=== PATIENT | male | born 1990 | race Caucasian/White ===

== ENCOUNTER 2016-09-11 03:21 | Inpatient (IN) | payer OTHER ==
--- NOTE | ~2016-09-11 | PN ---
Unit #: [id number] #: [id number] Patient: PRASANNA JOHNSON [id number] [facility] [address] [place] [address] [id number] MR#: [id number] NAME: PRASANNA JOHNSON. ROOM: P210 Age: 26 Sex: M Admission Date: 09/11/2016 : 1990 Attending Physician: Tashi Allan M.D. Admitting Physician: Tashi Allan M.D. Primary Care Physician: Sanjay Jean PROGRESS NOTES DATE 09/13/2016 DISCUSSION Prasanna Johnson is a 26-year-old male, seen on 09/13/2016. The patient interviewed, chart reviewed, and obtained information from the nursing staff. The patient wanted to know about his lab tests which was explained. The patient reports making progress but still sad, depressed, withdrawn, isolative. Vital signs stable, 97.6, 59, and 109/64. REVIEW OF SYSTEMS Complete review of systems unremarkable. MENTAL STATUS EXAMINATION General appearance: Patient dressed casually. Attention span and concentration, fair. Oriented to time, place, and person. Mood and affect, sad and depressed. Speech, monotone. Thought process, concrete. The patient denied any thoughts of harming self or others or any psychotic symptoms. Recent and remote memory, poor. Insight and judgment, poor. DIAGNOSIS Mood disorder, NOS. ASSESSMENT/PLAN Advised to continue with the current medication and therapeutic protocol and if needed consider further adjustment of medication. Dictated by... Sanjya East/eduin TD: 09/16/2016 07:25 JOB #: [id number] Unit #: [id number] #: [id number] Patient: PRASANNA JOHNSON PEAERWIN PROGRESS NOTES Page 1 of 1 X Tashi Allan MD X PROGRESS NOTE
--- NOTE | ~2016-09-11 | DS ---
Unit #: [id number] #: [id number] Patient: ANNA MARIE JOHNSON [id number] [facility] [address] [place] [address] [id number] MR#: [id number] NAME: ANNA MARIE JOHNSON. ROOM: P210 Age: 26 Sex: M Admission Date: 09/11/2016 : 1990 Discharge Date: 09/14/2016 Attending Physician: Tashi Allan M.D. Primary Care Physician: Sumit Gracia M.D. DISCHARGE SUMMARY REASON FOR ADMISSION Depression, alcohol abuse. DIAGNOSTIC STUDIES LABORATORY RESULTS: Unremarkable. HOSPITAL COURSE The patient was admitted to inpatient unit on 09/11/2016 and discharged on 09/14/2016. The patient was treated on the inpatient unit with psychoeducation, chemical dependency group, psychotherapy, structured milieu, medication management. The patient responded well with the above modalities of treatment. Subsequently, the patient was discharged with a plan to follow up in outpatient program. DISCHARGE MEDICATIONS Remeron 15 mg at bedtime for depression, Protonix 40 mg daily for GERD, Vistaril 50 mg t.i.d. for anxiety, Seroquel 100 mg at bedtime for sleep, Augmentin 875 mg b.i.d. for infection. DISCHARGE DIAGNOSES Psychiatric: 1. Mood disorder, not otherwise specified, F32.9. 2. Rule out bipolar mood disorder. 3. Anxiety disorder, not otherwise specified. 4. Alcohol use disorder, severe, F10.20. Secondary diagnosis: Deferred. Medical diagnosis: None. Stressors: Psychosocial stressors. DISCHARGE INSTRUCTIONS The patient to follow up in outpatient clinic as per director of social work. CONDITION ON DISCHARGE The patient was pleasant and cooperative. Denied any psychotic symptom or any suicidal ideation. PROGNOSIS Guarded. DIET AND ACTIVITY As tolerated. Unit #: [id number] #: [id number] Patient: ANNA MARIE JOHNSON Dictated by... Sanjay EastC/robert TD: 09/14/2016 13:34 JOB #: [id number] DISCHARGE SUMMARY Page 1 of 1 X Tashi Allan MD DISCHARGE SUMMARY
--- NOTE | ~2016-09-11 | HP ---
Unit #: [id number] #: [id number] Patient: PRASANNA JOHNSON [id number] [facility] [address] [place] [address] [id number] I MR#: [id number] NAME: PRASANNA JOHNSON. ROOM: P210 Age: 26 Sex: M Admission Date: 09/11/2016 : 1990 Attending Physician: Tashi Allan M.D. Admitting Physician: Tashi Allan M.D. Primary Care Physician: Sumit Gracia M.D. HISTORY AND PHYSICAL HISTORY OF PRESENT ILLNESS Prasanna is a 26 year old admitted to [address] [place] [address] because of his continued drug use. PAST MEDICAL HISTORY 1. Long history of opioid abuse to include heroin. 2. Hepatitis C. PAST SURGICAL HISTORY 1. Bilateral inguinal hernia repair. 2. Hydrocele repair. 3. Right hand. ALLERGIES Erythromycin, Keflex, trazodone, and Cipro. SOCIAL HISTORY Smokes one-half packs per day. Denies alcohol. Admits to long history of opioid abuse to include IV heroin. FAMILY HISTORY Medically noncontributory. REVIEW OF SYSTEMS CONSTITUTIONAL: No fever or chills. HEENT: Denies any sore throat, ear pain or runny nose. CARDIOVASCULAR: Denies chest pain, irregular heart rhythm or palpitations. CHEST: Denies shortness of breath or cough. No hemoptysis. GASTROINTESTINAL: Denies nausea, vomiting, diarrhea or chronic constipation. ENDOCRINE: Denies history of increased thirst or urination. No recent significant weight loss or gain. GENITOURINARY: Denies dysuria, frequency, or hematuria. SKIN: Denies any rashes. HEMATOLOGIC: Denies history of increased bleeding or bruising. MUSCULOSKELETAL: Denies any hot, swollen joints. No generalized muscle pain. NEUROLOGIC: Denies problems with vision or speech. No frequent, severe headaches. No numbness, tingling or weakness in any extremities. Denies loss of bladder or bowel control. CURRENT MEDICATIONS Detox protocol. Unit #: [id number] #: [id number] Patient: PRASANNA JOHNSON PHYSICAL EXAMINATION GENERAL: Alert, well nourished. No apparent distress. VITAL SIGNS: Blood pressure 130/80, heart rate 80, respirations 16, and temperature 98.6. WEIGHT: 137. HEIGHT: 5 feet 8 inches. SKIN: Warm and dry without rash or lesion. It is evident that along the left brow, he has had a recent piercing. The area is slightly red with small amounts of serous fluid. No warmth or odor is noted. HEENT: Normocephalic. TMs not viewed. Oral and nasal passages clear. Conjunctivae clear. PERRLA. EOMs intact. NECK: Supple without lymphadenopathy or thyromegaly. HEART: Regular rate and rhythm without murmur. LUNGS: Clear. ABDOMEN: Soft, nontender. : Not done. EXTREMITIES: No evidence of cyanosis, clubbing or edema. Moves all without focal deficit. NEUROLOGICAL: Grossly within normal limits. Cranial Nerves: II: Visual meehan are intact. III, IV AND : Extraocular movements are intact. Pupils are equal, round and reactive to light. V: Facial sensation is grossly normal. VII: Facial movements and expression are normal. VIII: Auditory acuity grossly intact. IX, X: Uvula is midline. Phonation is normal. XI: Patient shrugs shoulders and turns head normally. XII: Tongue protrudes in the midline. Sensory and Motor Function: Sensory and motor sensation is grossly normal. Motor: moves all extremities well. Coordination: Gait is normal. Deep Tendon Reflexes: Intact. ASSESSMENT 1. Psychiatric admission. 2. Cellulitis along his left brow after a recent piercing. RECOMMENDATIONS PSYCHIATRIC: Per psychiatrist. MEDICAL: 1. I see no contraindication to participate in this facility's activities. 2. Augmenting 875 mg 1 p.o. b.i.d. x7 days. MEDICAL PROGNOSIS Good. MEDICAL CONDITION Stable. Dictated by... Ricyk NunezAKarli. for Sanjay Astorga/darryn Unit #: [id number] #: [id number] Patient: PRASANNA JOHNSON TD: 09/12/2016 06:44 JOB #: [id number] HISTORY AND PHYSICAL Page 1 of 1 X Isabell Andujar HISTORY AND PHYSICAL
--- NOTE | ~2016-09-11 | PN ---
Unit #: [id number] #: [id number] Patient: PRASANNA JOHNSON [id number] [facility] [address] [place] [address] [id number] I MR#: [id number] NAME: PRASANNA JOHNSON. ROOM: P210 Age: 26 Sex: M Admission Date: 09/11/2016 : 1990 Attending Physician: Tashi Allan M.D. Admitting Physician: Tashi Allan M.D. Primary Care Physician: Sanjay Jean PROGRESS NOTES DATE 09/12/2016 DISCUSSION Mr. Prasanna Johnson is a 26-year-old male seen on 09/12/2016. The patient was compliant and cooperative, mood sad, dysphoric. The patient was able to maintain safe behavior but still reported having symptoms of depression, anxiety, mood lability. Complete review of systems unremarkable. MENTAL STATUS EXAMINATION General appearance, the patient dressed casually. Vital signs stable 98.4, 83, 118/72. Attention span and concentration fair. Oriented to place and person. Mood and affect sad, dysphoric. Speech monotone. Thought process concrete. The patient denied any thoughts of harming self or others or any psychotic symptoms. Recent and remote memory poor, seclusive, isolative, guarded. Insight and judgement poor. DIAGNOSES Mood disorder NOS Alcohol use disorder moderate to severe. ASSESSMENT/PLAN Advise to continue with current medication and therapeutic protocol. If needed consider further adjustment of medication. Dictated by... Sanjay East/kalyani TD: 09/16/2016 01:05 JOB #: [id number] Unit #: [id number] #: [id number] Patient: PRASANNA JOHNSONERWIN PROGRESS NOTES Page 1 of 1 X Tashi Allan MD X PROGRESS NOTE
--- NOTE | ~2016-09-11 | PA ---
Unit #: [id number] #: [id number] Patient: PRASANNA JOHNSON [id number] [facility] [address] [place] [address] [id number] I MR#: [id number] NAME: PRASANNA JOHNSON ROOM: [facility] Age: 26 Sex: M Admission Date: 09/11/2016 : 1990 Date of Assessment: 09/11/2016 Attending Physician: Tashi Allan M.D. Admitting Physician: Tashi Allan M.D. Primary Care Physician: Sumit Gracia M.D. PSYCHIATRIC ASSESSMENT INFORMANTS The patient reliability, fair informant and chart reliability, good. CHIEF COMPLAINT Substance abuse and depression. HISTORY OF PRESENT ILLNESS Mr. Prasanna Johnson is a 26-year-old male, seen on , presented with the above-mentioned complaint. The patient presented with depressive symptoms, reported feeling sad and depressed, reported suicidal ideation with a plan to overdose or walk into traffic. The patient denied any homicidal ideation or any hallucination. The patient reported drinking a fifth of vodka a day early June. The patient reports that he uses between quarter to half of heroin every other day. The patient reported that he has started drinking a lot and cut back on the heroin. The patient reported that he has not had anything in the last 36 hours, but marijuana. The patient reports depression and anxiety. The patient reports not eating or sleeping. The patient has a CIWA score of 8 and COWS score of 9. The patient needing inpatient admission at this time for psychiatric stabilization. PAST PSYCHIATRIC HISTORY Remarkable [facility]. FAMILY HISTORY AND SOCIAL HISTORY The patient lives with his mother. History of psychiatric illness in the family unremarkable. History of drug abuse and DUI in the past. The patient denied any history of physical abuse, sexual abuse, or emotional abuse. MEDICAL HISTORY Unremarkable for any chronic medical illness. Musculoskeletal; muscle strength and tone, no atrophy or abnormal movement. Gait normal. MEDICATION HISTORY None. ALLERGIES No known drug allergies. SUBSTANCE ABUSE HISTORY The patient reported tobacco use, age of onset 10; alcohol, age of onset Unit #: [id number] #: [id number] Patient: WHITE,PRASANNA A 12; marijuana, age of onset 7; and opioid use, age of onset 17. The patient reported currently symptoms such as depressed mood, irritability, restlessness, sweats, cold, chills, poor appetite, sleep problem, history of blackout, history of hepatitis, withdrawal symptom, and IV drug use in the past. REVIEW OF SYSTEMS HEENT: Eyes, clear. Ears, nose, mouth, and throat; clear. CARDIOVASCULAR: Unremarkable. RESPIRATORY: Unremarkable. GI: Unremarkable. : Unremarkable. SKIN: Unremarkable. LYMPH NODE: Unremarkable. NEUROLOGIC: Unremarkable. ENDOCRINE: Unremarkable. HEMATOLOGIC: Unremarkable. ALLERGIC/IMMUNOLOGIC: Unremarkable. MUSCULOSKELETAL: Muscle strength and tone, no atrophy or abnormal movement. Gait normal except as mentioned above. MENTAL STATUS EXAMINATION CONSTITUTIONAL: Measurement of vital signs; temperature 97.7, heart rate 66, respiratory rate 18, and blood pressure 131/80. Height 5 feet 8 inches and weight 138 pounds. GENERAL APPEARANCE: The patient dressed casually. The patient did not show any facial deformity. MUSCULOSKELETAL: Please see above. PSYCHIATRIC EXAMINATION Description of speech; regular rate, normal volume, normal articulation, coherent, and spontaneous. Description of thought process, goal directed. Description of association, intact. Description of abnormal psychotic thinking; the patient denied any hallucinations or delusions, but mood sad and depressed. Substance abuse and suicidal ideation. No homicidal ideation. No psychotic symptom. Description of the patient's judgment: Concerning everyday activity, poor. Social situation, poor. Concerning psychiatric condition, poor. Complete mental status examination; oriented in time, place, and person. Recent and remote memory, fair. Attention span and concentration, fair. Language, able to name object and repeat phrases. Fund of knowledge, aware of current event and passive vocabulary intact. Mood and affect, sad and dysphoric. Insight and judgment, fair to poor. ASSETS AND LIABILITIES Assets, the patient is articulate and able to take care of his ADL. Liability, history of substance abuse and depression. ADMITTING DIAGNOSES Psychiatric: Mood disorder, not otherwise specified, F32.9; bipolar mood disorder, not otherwise specified, F31.89; and alcohol use disorder, severe, F10.20. Secondary diagnosis: Deferred. Medical diagnosis: None. Unit #: [id number] #: [id number] Patient: PRASANNA JOHNSON Stressors: Psychosocial stressors. PSYCHIATRIC PLAN AND TREATMENT GOAL AND DISCHARGE PLAN 1. Advised to admit the patient on the inpatient unit. Provide safe, supportive, and structured environment. 2. Ordered labs; CBC, CMP, UA, and UDS. 3. Detox protocol and detox monitoring. The patient to continue with current medication. Monitor the patient's mood and behavior. The patient to attend group therapy, individual therapy, and medication management. Advised Remeron 15 mg for depression and sleep and doxepin 100 mg at bedtime for sleep. The patient to continue with Vistaril and Protonix. TREATMENT GOAL To attain euthymic mood, gain insight into his problem, and learn coping skills. DISCHARGE PLAN Plan to stabilize the patient and consider followup in outpatient program. ESTIMATED LENGTH OF STAY 5 days. Dictated by... Sanjay East/robert TD: 09/11/2016 18:54 JOB #: [id number] PSYCHIATRIC ASSESSMENT Page 1 of 1 X Tashi Allan MD X PSYCHIATRIC ASSESSMENT
[2016-09-11 10:11] LABS: BASOPHIL% 0.4 % (0-2.5); EOSINOPHIL# 0.2 X10e3 (0-0.7); EOSINOPHIL% 2.4 % (0.0-7.0); HEMATOCRIT 43.2 % (38.0-50.0); HEMOGLOBIN 14.5 gm/dL (13.0-16.0); LYMPHOCYTE# 3.4 X10e3 (1.0-3.5); LYMPHOCYTE% 39.5 % (17.0-45.0); MEAN CELL VOLUME 92.1 FL (83-96); MEAN CORPUSCULAR HGB CONC 33.6 g/dL (30-36); MEAN PLATELET VOLUME 8.8 FL (6.5-11.5); MONOCYTE# 0.9 X10e3 (0-1.0); MONOCYTE% 10.5 % (3.0-12.0); NEUTROPHIL# 4.1 X10e3 (1.5-7.1); NEUTROPHIL% 47.2 % (40-75); PLATELET COUNT 174 X10e3 (140-420); RED BLOOD COUNT 4.69 X10e (3.90-5.60); RED CELL DISTRIBUTION WIDTH 12.3 % (11.0-15.5); WHITE BLOOD COUNT 8.7 X10e3 (4.0-10.5)
[2016-09-11 10:14] LABS: DIFF IND NO
[2016-09-11 10:21] LABS: THYROID STIMULATING HORMONE 2.47 uIU/ml (0.34-5.60)
[2016-09-11 10:23] LABS: BILIRUBIN,TOTAL 0.3 mg/dL (0.2-2.0); BUN/CREATININE RATIO 15.55; CALCIUM SERUM 9.4 mg/dL (8.4-10.2); CREATININE SERUM 0.9 mg/dL (0.6-1.4); GLOM FILT RATE Estimated 115.8 mL/min (>60); POTASSIUM 3.8 mmol/L (3.5-5.1); PROTEIN TOTAL SERUM 6.4 g/dL (6.0-8.3)
[2016-09-11 10:28] LABS: FREE THYROXIN (T4) 0.69 ng/dL (0.58-1.64)
[2016-09-11 10:31] LABS: URINE APPEARANCE CLEAR; URINE BILIRUBIN NEG (NEG); URINE BLOOD NEG (NEG); URINE COLOR YELLOW; URINE GLUCOSE NEG (NEG); URINE KETONE NEG (NEG); URINE LEUKOCYTE ESTERASE NEG (NEG); URINE NITRATE NEG (NEG); URINE PH 6.5 (5-8); URINE PROTEIN NEG (NEG); URINE SPECIFIC GRAVITY 1.022 (1.003-1.035)
[2016-09-11 11:06] LABS: AMPHETAMINE NEG (NEG); BARBITURATES NEG (NEG); BENZODIAZEPINES NEG (NEG); COCAINE NEG (NEG); MARIJUANA POS (NEG); OPIATES POS (NEG); TRICYCLIC ANTIDEPRESSANTS NEG (NEG); U METHADONE NEG (NEG)
== END 2016-09-14 10:25 | DRG 885 ==
LOC: P2S 03:21
PROVIDERS: Psychiatry & Neurology Psychiatry
PROC: HZ2ZZZZ Detoxification Services for Substance Abuse Treatment (ICD-10-PCS; principal; 2016-09-11)
DX: F39 Unspecified mood [affective] disorder (principal); L03.211 Cellulitis of face; F10.20 Alcohol dependence, uncomplicated; B19.20 Unspecified viral hepatitis C without hepatic coma; F17.210 Nicotine dependence, cigarettes, uncomplicated
CPT/HCPCS: 80053; 80307; 81003; 84439; 84443; 85025; 86592

== ENCOUNTER 2016-11-03 02:00 | Inpatient (IN) | payer OTHER ==
--- NOTE | ~2016-11-03 | PN ---
Unit #: [id number] #: [id number] Patient: ANNA MARIE JOHNSON [id number] [facility] [address] [place] [address] [id number] I MR#: [id number] NAME: ANNA MARIE JOHNSON. ROOM: [facility] Age: 26 Sex: M Admission Date: 11/03/2016 : 1990 Attending Physician: Tashi Allan M.D. Admitting Physician: Tashi Allan M.D. Primary Care Physician: Sanjay Jean PROGRESS NOTES DATE OF SERVICE 11/04/2016 DISCUSSION Mr. Mims is a 26-year-old male seen on 11/04/2016. The patient interviewed, chart reviewed. Obtained information from nursing staff. The patient compliant, cooperative. Mood sad, dysphoric, flat affect, guarded. The patient still reported feeling depressed, but able to contract for safety. Compliant with medication. Complete Review of Systems: Unremarkable. MENTAL STATUS EXAMINATION General Appearance: The patient dressed casually. Vital Signs: 98.8, 126, 112/73. Attention span, concentration: Fair. Oriented in place and person. Mood and affect: Sad, dysphoric. Speech: Regular rate, coherent, oriented. Thought process: Coherent. Thought content: The patient denied any thoughts of harming self or others, but withdrawn. Sad, depressed. Recent and remote memory: Poor. Insight and judgment: Poor. DIAGNOSES 1. Bipolar mood disorder not otherwise specified. 2. Alcohol use disorder, severe. ASSESSMENT/PLAN Advised to continue with current medication and therapeutic protocol. If needed, consider further adjustment of medication. Dictated by... Sanjay East/darryn TD: 11/05/2016 12:32 JOB #: [id number] Unit #: [id number] #: [id number] Patient: ANNA MARIE JOHNSONERWIN PROGRESS NOTES Page 1 of 1 X Tashi Allan MD PROGRESS NOTE
--- NOTE | ~2016-11-03 | DS ---
Unit #: [id number] #: [id number] Patient: ANNA MARIE JOHNSON [id number] [facility] [address] [place] [address] [id number] I MR#: [id number] NAME: ANNA MARIE JOHNSON. ROOM: [facility] Age: 26 Sex: M Admission Date: 11/03/2016 : 1990 Discharge Date: 11/05/2016 Attending Physician: Tashi Allan M.D. Primary Care Physician: Sumit Gracia M.D. DISCHARGE SUMMARY REASON FOR ADMISSION Suicidal ideation and drug abuse. DIAGNOSTIC STUDIES LABORATORY RESULTS: Remarkable for urine drug screen positive for opioids. HOSPITAL COURSE The patient was admitted to inpatient unit on 11/03/2016 and discharged on 11/05/2016. The patient was treated on the inpatient unit with chemical dependency group, structured milieu, psychoeducation. The patient responded to the treatment and subsequently, the patient was discharged with a plan to follow up in outpatient program. The patient denied any suicidal or homicidal ideation. Denied any psychotic symptom. The patient was not suicidal or homicidal at the time of discharge. DISCHARGE MEDICATION Bactrim DS one tablet b.i.d. for 5 days for upper respiratory tract infection, Seroquel 100 mg at bedtime for sleep, Remeron 15 mg at bedtime for depression, and Vistaril 50 mg t.i.d. for anxiety. DISCHARGE DIAGNOSES Psychiatric: Major depressive disorder, recurrent, severe, F33.2; anxiety disorder, not otherwise specified; alcohol use disorder, severe, F10.20. Secondary diagnosis: Deferred. Medical diagnosis: None. Stressors: Psychosocial stressors. DISCHARGE INSTRUCTIONS The patient to follow up in outpatient clinic as per social economist. CONDITION ON DISCHARGE The patient was pleasant and cooperative. Denied any psychotic symptom or any suicidal ideation. PROGNOSIS Guarded. DIET AND ACTIVITY As tolerated. Unit #: [id number] #: [id number] Patient: ANNA MARIE JOHNSON Dictated by... Sanjay East/robert TD: 11/06/2016 16:34 JOB #: [id number] DISCHARGE SUMMARY Page 1 of 1 X Tashi Allan MD DISCHARGE SUMMARY
--- NOTE | ~2016-11-03 | PA ---
Unit #: [id number] #: [id number] Patient: PRASANNA JOHNSON [id number] [place] [address] [id number] I MR#: [id number] NAME: PRASANNA JOHNSON. ROOM: [facility] Age: 26 Sex: M Admission Date: 11/03/2016 : 1990 Date of Assessment: Attending Physician: Tashi Allan M.D. Admitting Physician: Tashi Allan M.D. Primary Care Physician: Sumit Gracia M.D. PSYCHIATRIC ASSESSMENT INFORMANTS The patient's reliability, fair; chart reliability, good. CHIEF COMPLAINT Depression and substance abuse. HISTORY OF PRESENT ILLNESS Mr. Prasanna johnson is a 26-year-old male, presented with the above-mentioned complaint. The patient well known to us from his previous admission, multiple admission at [facility]. The patient lives with his parents, presented with increase in depression, having suicidal ideation with a plan to walk into a bus. The patient reported he has been having dreams, having a gun to his head. The patient reports that being on probation and relapsed 5 weeks ago, feeling shame and guilt, feeling of hopelessness and worthlessness. The patient reported using half a gram of heroin and past 2 weeks drinking fifth daily. The patient reported past 5 weeks, he relapsed. The patient stated that he does not sleep and eat due to drugs. Needing inpatient admission at this time for psychiatric stabilization. PAST PSYCHIATRIC HISTORY Remarkable for history of multiple admission in the past at [facility], last admission was on 09/11/2016. FAMILY HISTORY AND SOCIAL HISTORY The patient lives with his mother. No known history of any abuse. Legal trouble as mentioned above. MEDICAL HISTORY Unremarkable for any chronic medical condition. Musculoskeletal; muscle strength and tone, no atrophy or abnormal movement. Gait normal. MEDICATION HISTORY The patient is on Protonix 40 mg daily, doxepin 100 mg at bedtime, Remeron 15 mg at bedtime, Vistaril 50 mg t.i.d. ALLERGIES No known drug allergies. SUBSTANCE ABUSE HISTORY Please see above. Use of alcohol, age of onset 10; marijuana, age of onset 7; opioid use, age of onset 17. Unit #: [id number] #: [id number] Patient: PRASANNA JOHNSON REVIEW OF SYSTEMS HEENT: Eyes, clear. Ears, nose, mouth, and throat; clear. CARDIOVASCULAR: Unremarkable. RESPIRATORY: Unremarkable. GI: Unremarkable. : Unremarkable. SKIN: Unremarkable. LYMPH NODE: Unremarkable. NEUROLOGIC: Unremarkable. ENDOCRINE: Unremarkable. HEMATOLOGIC: Unremarkable. ALLERGIC/IMMUNOLOGIC: Unremarkable. MUSCULOSKELETAL: Muscle strength and tone, no atrophy or abnormal movement. Gait normal. MENTAL STATUS EXAMINATION CONSTITUTIONAL: Measurement of vital signs; temperature 98.4, pulse 80, respirations 18, blood pressure 130/80; height 5 feet 8 inches. GENERAL APPEARANCE: The patient dressed casually. The patient did not show any facial deformity. MUSCULOSKELETAL: Please see above. PSYCHIATRIC EXAMINATION Description of speech, regular rate. Description of thought process, goal directed. Description of association, intact. Description of abnormal psychotic thinking; the patient denied any hallucination or delusions, but suicidal ideation, depression, substance abuse. Description of the patient's judgment; concerning everyday activity, poor. Social situation, poor. Concerning psychiatric condition, poor. Complete mental status examination; oriented in time, place, and person. Recent and remote memory, fair. Attention span and concentration, fair. Language, able to name object and repeat phrases. Fund of knowledge, aware of current event and passive vocabulary intact. Mood and affect, sad and dysphoric. Insight and judgment, fair to poor. ASSETS AND LIABILITIES Assets; the patient is articulate, able to take care of his ADL. Liability; history of substance abuse, depression. ADMITTING DIAGNOSES Psychiatric: Mood disorder, not otherwise specified, F32.9; bipolar mood disorder, recurrent, depressed, moderate, F31.9; alcohol use disorder, severe, F10.20. Secondary diagnosis: Deferred. Medical diagnosis: None. Stressors: Psychosocial stressors. PSYCHIATRIC PLAN AND TREATMENT GOAL 1. Advised to admit the patient on the inpatient unit. Provide safe, supportive, and structured environment. 2. Ordered labs; CBC, CMP, UA, and UDS. 3. Detox protocol and detox monitoring. Advised to resume home medication. If needed, consider further adjustment of medication. Treatment goal to attain euthymic mood, gain insight into his problem, and Unit #: [id number] #: [id number] Patient: PRASANNA JOHNSON learn coping skills. DISCHARGE PLAN Plan to stabilize the patient and consider followup in outpatient program. ESTIMATED LENGTH OF STAY 5 days. Dictated by... Sanjay East/robert TD: 11/05/2016 03:20 JOB #: [id number] PSYCHIATRIC ASSESSMENT Page 1 of 1 X Tashi Allan MD X PSYCHIATRIC ASSESSMENT
--- NOTE | ~2016-11-03 | HP ---
Unit #: [id number] #: [id number] Patient: PRASANNA JOHNSON [id number] [place] [address] [id number] MR#: [id number] NAME: PRASANNA JOHNSON. ROOM: [facility] Age: 26 Sex: M Admission Date: 11/03/2016 : 1990 Attending Physician: Tashi Allan M.D. Admitting Physician: Tashi Allan M.D. Primary Care Physician: Sumit Gracia M.D. HISTORY AND PHYSICAL HISTORY OF PRESENT ILLNESS Prasanna is a 26 year old, admitted to [facility] because of his continued drug use. PAST MEDICAL HISTORY 1. Long history of opioid abuse to include heroin. 2. Hepatitis C. PAST SURGICAL HISTORY 1. Bilateral inguinal hernia repairs. 2. Hydrocele repair. 3. Right hand. ALLERGIES Erythromycin, Keflex, trazodone, Cipro. SOCIAL HISTORY Smokes one half pack per day, denies alcohol, and admits to a long history of opioid abuse to include IV heroin. FAMILY HISTORY Medically noncontributory. REVIEW OF SYSTEMS CONSTITUTIONAL: No fever or chills. HEENT: Denies any sore throat, ear pain or runny nose. CARDIOVASCULAR: Denies chest pain, irregular heart rhythm or palpitations. CHEST: Denies shortness of breath or cough. No hemoptysis. GASTROINTESTINAL: Denies nausea, vomiting, diarrhea or chronic constipation. ENDOCRINE: Denies history of increased thirst or urination. No recent significant weight loss or gain. GENITOURINARY: Denies dysuria, frequency, or hematuria. SKIN: Denies any rashes. HEMATOLOGIC: Denies history of increased bleeding or bruising. MUSCULOSKELETAL: Denies any hot, swollen joints. No generalized muscle pain. NEUROLOGIC: Denies problems with vision or speech. No frequent, severe headaches. No numbness, tingling or weakness in any extremities. Denies loss of bladder or bowel control. CURRENT MEDICATIONS Detox protocol. Unit #: [id number] #: [id number] Patient: PRASANNA JOHNSON PHYSICAL EXAMINATION GENERAL: Alert, well-nourished, no apparent distress. VITAL SIGNS: Blood pressure 112/72, heart rate 80, respirations 16, and temperature 98.6. WEIGHT: 135 pounds. HEIGHT: 5 feet 8 inches. SKIN: Warm and dry without rash or lesion. HEENT: Normocephalic. TMs not viewed. Oral and nasal passages clear. Conjunctivae clear. PERRLA. EOMs intact. NECK: Supple without lymphadenopathy or thyromegaly. HEART: Regular rate and rhythm without murmur. LUNGS: Clear. ABDOMEN: Soft, nontender. : Not done. EXTREMITIES: No evidence of cyanosis, clubbing or edema. Moves all without focal deficit. NEUROLOGICAL: Grossly within normal limits. Cranial Nerves: II: Visual meehan are intact. III, IV AND : Extraocular movements are intact. Pupils are equal, round and reactive to light. V: Facial sensation is grossly normal. VII: Facial movements and expression are normal. VIII: Auditory acuity grossly intact. IX, X: Uvula is midline. Phonation is normal. XI: Patient shrugs shoulders and turns head normally. XII: Tongue protrudes in the midline. Sensory and Motor Function: Sensory and motor sensation is grossly normal. Motor: moves all extremities well. Coordination: Gait is normal. Deep Tendon Reflexes: Intact. IMPRESSION Psychiatric admission. Dictated by... Isabell Andujar PCandyAKarli. for Sanjay Astorga/eduin TD: 11/04/2016 12:04 JOB #: [id number] HISTORY AND PHYSICAL Page 1 of 1 X Isabell Andujar X HISTORY AND PHYSICAL
[2016-11-04 09:43] LABS: BASOPHIL% 0.6 % (0-2.5); EOSINOPHIL# 0.2 X10e3 (0-0.7); EOSINOPHIL% 2.3 % (0.0-7.0); HEMATOCRIT 43.3 % (38.0-50.0); HEMOGLOBIN 14.6 gm/dL (13.0-16.0); LYMPHOCYTE# 2.4 X10e3 (1.0-3.5); LYMPHOCYTE% 35.6 % (17.0-45.0); MEAN CELL VOLUME 89.9 FL (83-96); MEAN CORPUSCULAR HEMOGLOBIN 30.4 PG (28-34); MEAN CORPUSCULAR HGB CONC 33.7 g/dL (30-36); MEAN PLATELET VOLUME 8.4 FL (6.5-11.5); MONOCYTE# 0.9 X10e3 (0-1.0); MONOCYTE% 12.6 % (3.0-12.0); NEUTROPHIL# 3.4 X10e3 (1.5-7.1); NEUTROPHIL% 48.9 % (40-75); PLATELET COUNT 192 X10e3 (140-420); RED BLOOD COUNT 4.82 X10e (3.90-5.60); RED CELL DISTRIBUTION WIDTH 12.4 % (11.0-15.5); WHITE BLOOD COUNT 6.9 X10e3 (4.0-10.5)
[2016-11-04 09:58] LABS: DIFF IND NO
[2016-11-04 10:03] LABS: BILIRUBIN,TOTAL 0.9 mg/dL (0.2-2.0); CALCIUM SERUM 9.3 mg/dL (8.4-10.2); POTASSIUM 4.3 mmol/L (3.5-5.1); PROTEIN TOTAL SERUM 6.8 g/dL (6.0-8.3)
[2016-11-04 10:34] LABS: URINE APPEARANCE CLOUDY; URINE BILIRUBIN NEG (NEG); URINE BLOOD NEG (NEG); URINE COLOR YELLOW; URINE GLUCOSE NORM (NORM); URINE KETONE NEG (NEG); URINE LEUKOCYTE ESTERASE NEG (NEG); URINE NITRATE NEG (NEG); URINE PROTEIN NEG (NEG); URINE SPECIFIC GRAVITY 1.025 (1.003-1.035); URINE UROBILINOGEN NORM (NORM)
[2016-11-04 10:51] LABS: AMPHETAMINE NEG (NEG); BARBITURATES NEG (NEG); BENZODIAZEPINES NEG (NEG); COCAINE NEG (NEG); MARIJUANA NEG (NEG); OPIATES POS (NEG); TRICYCLIC ANTIDEPRESSANTS NEG (NEG); U METHADONE NEG (NEG)
== END 2016-11-05 09:00 | disposition home or self-care (01) | DRG 885 ==
LOC: P2S 06:58 → P1E 06:58
PROVIDERS: Psychiatry & Neurology Psychiatry
PROC: HZ2ZZZZ Detoxification Services for Substance Abuse Treatment (ICD-10-PCS; principal; 2016-11-03)
DX: F31.32 Bipolar disorder, current episode depressed, moderate (principal); B19.20 Unspecified viral hepatitis C without hepatic coma; F10.20 Alcohol dependence, uncomplicated
CPT/HCPCS: 80053; 80307; 81003; 85025; 86592

== ENCOUNTER 2016-11-26 12:00 | Inpatient (IN) | payer OTHER ==
--- NOTE | ~2016-11-26 | PN ---
Unit #: [id number] #: [id number] Patient: PRASANNA JOHNSON [id number] [facility] [address] [place] [address] [id number] MR#: [id number] NAME: PRASANNA JOHNSON. ROOM: [facility] Age: 26 Sex: M Admission Date: 11/26/2016 : 1990 Attending Physician: Tashi Allan M.D. Admitting Physician: Tashi Allan M.D. Primary Care Physician: Sanjay Jean PROGRESS NOTES DATE 11/27/2016 DISCUSSION Prasanna Johnson is a 26-year-old male, seen on 11/27/2016. The patient interviewed, chart reviewed, and obtained information from the nursing staff. The patient was compliant and cooperative, sad and dysphoric, flat affect. The patient reported feeling sick, having chest congestion, and nasal congestion, but coherent, able to answer questions appropriately. The patient was admitted in a psychotic state. Vital signs stable. REVIEW OF SYSTEMS Complete review of systems unremarkable. MENTAL STATUS EXAMINATION General appearance: Patient dressed casually. Attention span and concentration, fair. Oriented in time, place, and person. Mood and affect, labile. Speech, regular rate. Thought process, goal-directed. The patient denied any thoughts of harming self or others but guarded and paranoid. Recent and remote memory, poor. Insight and judgment, poor. DIAGNOSES 1. Psychosis, NOS, F29.0. 2. Amphetamine use disorder, moderate. 3. Opiate use disorder, severe. ASSESSMENT/PLAN Advised to continue with the current medication combination at this time, order medical consultation to review the patient's medical condition, as the patient is complaining of above mentioned symptoms. We will continue to follow, if needed consider further adjustment of medication. Dictated by... Sanjay East/eduin TD: 11/28/2016 07:13 JOB #: [id number] Unit #: [id number] #: [id number] Patient: PRASANNA JOHNSON [facility] PROGRESS NOTES Page 1 of 1 X Tashi Allan MD PROGRESS NOTE
--- NOTE | ~2016-11-26 | PN ---
Unit #: [id number] #: [id number] Patient: ANNA MARIE JOHNSON [id number] [facility] [address] [place] [address] [id number] I MR#: [id number] NAME: ANNA MARIE JOHNSON. ROOM: P183 Age: 26 Sex: M Admission Date: 11/26/2016 : 1990 Attending Physician: Tashi Allan M.D. Admitting Physician: Tashi Allan M.D. Primary Care Physician: Sumit Gracia M.D. [facility] PROGRESS NOTES DATE 11/29/2016 DISCUSSION Mr. Johnson is a 26-year-old white male who was seen today and chart was reviewed and case was discussed with the staff. He has been compliant with persistent anxiety. Meanwhile, he has been taking medications and tolerating them fairly well with no reported side effects. MENTAL STATUS EXAMINATION Young white male who was casually dressed with fair personal hygiene and appears to be in no acute distress or discomfort. He was awake and alert with intact orientation. His mood was anxious with congruent affect. He denies any suicidal or homicidal ideations. His insight and judgement remains slightly impaired. TREATMENT PLAN 1. Will continue on his current medications and treatment protocol. Will monitor his response to treatment interventions and will make further adjustments as needed. 2. Will continue to follow up. Dictated by... Mahnaz Fraser M.D. LINDSAY/ayad TD: 11/29/2016 21:26 JOB #: [id number] Unit #: [id number] #: [id number] Patient: ANNA MARIE JOHNSON YOLIS PROGRESS NOTES Page 1 of 1 X Mahnaz Fraser MD X PROGRESS NOTE
--- NOTE | ~2016-11-26 | HP ---
Unit #: [id number] #: [id number] Patient: PRASANNA JOHNSON [id number] [facility] [address] [place] [address] [id number] MR#: [id number] NAME: PRASANNA JOHNSON. ROOM: P210 Age: 26 Sex: M Admission Date: 11/26/2016 : 1990 Attending Physician: Tashi Allan M.D. Admitting Physician: Tashi Allan M.D. Primary Care Physician: Sumit Gracia M.D. HISTORY AND PHYSICAL HISTORY OF PRESENT ILLNESS Prasanna is a 26 year old admitted to [address] [place] [address] because of his drug use and drug induced psychosis. He has had other admissions to this facility. In fact his last admission was 11/03/16. Patient was seen and H and P dated 11/04/16 was reviewed. This is current. No changes except he does have redness in both eyes with moderate amounts of yellow drainage. Potassium on admission was 3.3. Plan will be to add KCL 20 mEq one p.o. b.i.d. x2 days, first dose now and start Cortisporin drops to both eyes. Please see H and P dated 11/04/16 for complete history and physical exam. Dictated by... Isabell Andujar P.A.-C. for Sanjay Astorga/ayad TD: 11/26/2016 15:57 JOB #: [id number] HISTORY AND PHYSICAL Page 1 of 1 X Isabell Andujar X HISTORY AND PHYSICAL
--- NOTE | ~2016-11-26 | PA ---
Unit #: [id number] #: [id number] Patient: PRASANNA JOHNSON [id number] [place] [address] [id number] I MR#: [id number] NAME: PRASANNA JOHNSON. ROOM: P183 Age: 26 Sex: M Admission Date: 11/26/2016 : 1990 Date of Assessment: 11/26/2016 Attending Physician: Tashi Allan M.D. Admitting Physician: Tashi Allan M.D. Primary Care Physician: Sumit Gracia M.D. PSYCHIATRIC ASSESSMENT DATE OF SERVICE 11/26/2016. INFORMANTS The patient's reliability, poor; chart reliability, good. CHIEF COMPLAINT Psychosis. HISTORY OF PRESENT ILLNESS Prasanna Johnson is a 26-year-old male, seen on 11/26/2016. The patient was admitted after EPS. The patient was on EPS up held DEW. The patient came on MIW by mother. The patient was agitated and was trying to jump out of the car. The patient was anxious, pressured speech. The patient was restless, anxious, agitated, history of opioid abuse, alcohol abuse, sedative hypnotic abuse. The patient was agitated after being brought by the police, aggressive. The patient received medication in the emergency room, and therefore, the patient was sleepy and unable to give any reliable information. The patient well known to us this facility from previous admission on 11/03/2016. The patient has a history of multiple admission at [facility]. The patient's behavior was erratic, bizarre behavior, tried to kill himself. Needing inpatient admission at this time for psychiatric stabilization. PAST PSYCHIATRIC HISTORY Remarkable for history of previous multiple admission at [facility], last admission on 11/03/2016. FAMILY HISTORY AND SOCIAL HISTORY The patient lives with his mother. No history of any abuse. Legal problems, as mentioned above. MEDICAL HISTORY History of hepatitis C and asthma and UTI. Musculoskeletal; muscle strength and tone, no atrophy or abnormal movement. Gait normal. MEDICATION HISTORY Remeron 15 mg at bedtime, Protonix 40 mg daily, Vistaril 50 mg t.i.d., Seroquel 100 mg at bedtime, Augmentin 875 mg b.i.d. for UTI prescribed recently. The last time, he was on Protonix, doxepin, Remeron, and Vistaril. ALLERGIES No known drug allergies. Unit #: [id number] #: [id number] Patient: PRASANNA JOHNSON SUBSTANCE ABUSE HISTORY Tobacco use, age of onset 10; alcohol, age of onset 12; marijuana, age of onset 7; opioid, age of onset 17; amphetamine, age of onset 23. The patient reported history of blackout, history of hepatitis, withdrawal symptom, IV drug use. Currently, having runny nose, nausea, vomiting, diarrhea, body aches, irritability. REVIEW OF SYSTEMS HEENT: Eyes, clear. Ears, nose, mouth, and throat; clear. CARDIOVASCULAR: Unremarkable. RESPIRATORY: Unremarkable. GI: Unremarkable. : Unremarkable. SKIN: Unremarkable. LYMPH NODE: Unremarkable. NEUROLOGIC: Unremarkable. ENDOCRINE: Unremarkable. HEMATOLOGIC: Unremarkable. ALLERGIC/IMMUNOLOGIC: Unremarkable. MUSCULOSKELETAL: Muscle strength and tone, no atrophy or abnormal movement. Gait normal. MENTAL STATUS EXAMINATION CONSTITUTIONAL: Measurement of vital signs; temperature is 98.4, pulse 94, respirations 18, height 5 feet 8 inches, blood pressure 122/64. GENERAL APPEARANCE: The patient dressed casually. No facial deformity noted. MUSCULOSKELETAL: Please see above. PSYCHIATRIC EXAMINATION Description of speech; slow in volume. Description of thought process; circumstantial. Description of association; guarded, paranoid. Description of abnormal psychotic thinking; guarded, paranoid, mood lability, suicidal ideation. Description of the patient's judgment; concerning everyday activity, poor. Social situation, poor. Concerning psychiatric condition, poor. Complete mental status examination; oriented in time and place. Recent and remote memory, poor. Attention span and concentration, poor. Language, fair. Fund of knowledge, fair. Vocabulary, fair. Mood and affect, sad and dysphoric. Insight and judgment, fair to poor. ASSETS AND LIABILITIES Assets, the patient is articulate and able to take care of his ADL. Liability, history of substance abuse and depression. ADMITTING DIAGNOSES Psychiatric: Psychosis, not otherwise specified, F29.0; amphetamine use disorder, severe, F15.20; opioid use disorder, severe, F11.20. Secondary diagnosis: Deferred. Medical diagnosis: Hepatitis C, asthma, and urinary tract infection. Stressors: Psychosocial stressor. ASSESSMENT/PLAN Unit #: [id number] #: [id number] Patient: PRASANNA JOHNSON 1. Advised to admit the patient on the inpatient unit. Provide safe, supportive, and structured environment. 2. Ordered labs; CBC, CMP, UA, and UDS. 3. Precaution for aggression and psychosis. 4. Detox protocol and detox monitoring. 5. The patient to attend all the programing. Resume home medication. Hold medication, if the patient too sleepy. TREATMENT GOAL To attain euthymic mood, gain insight into his problem, and learn coping skills. DISCHARGE PLAN Plan to stabilize the patient and consider followup in outpatient program. ESTIMATED LENGTH OF STAY 7 days. Dictated by... Sanjay East/robert TD: 11/27/2016 02:29 JOB #: [id number] PSYCHIATRIC ASSESSMENT Page 1 of 1 X Tashi Allan MD X PSYCHIATRIC ASSESSMENT
--- NOTE | ~2016-11-26 | CO ---
Unit #: [id number] #: [id number] Patient: ANNA MARIE JOHNSON [id number] [place] [address] [id number] I MR#: [id number] NAME: ANNA MARIE JOHNSON. ROOM: [facility] Age: 26 Sex: M Admission Date: 11/26/2016 : 1990 Attending Physician: Tashi Allan M.D. Primary Care Physician: Sumit Gracia M.D. Requesting Physician: Tashi Allan M.D. CONSULTATION REPORT REASON FOR CONSULTATION Patient complaint of cough SUBJECTIVE "I have had this dry cough and it cisse a little bit and it started a few days before I came in after I smoked methamphetamine and it cisse." OBJECTIVE Vital signs within normal limits. Lungs clear to auscultation bilaterally. The patient denies shortness of air. ASSESSMENT Cough. The patient requesting cough drops. PLAN The patient can have cough drops ordered to be p.r.n. Dictated by... Francesca WhiteRChoco POOLE/kalyani TD: 12/01/2016 03:34 JOB #: [id number] CONSULTATION REPORT Page 1 of 1 X Alecia Parkinson APR X CONSULTATION REPORT
--- NOTE | ~2016-11-26 | PN ---
Unit #: [id number] #: [id number] Patient: ANNA MARIE JOHNSON [id number] [facility] [address] [place] [address] [id number] I MR#: [id number] NAME: ANNA MARIE JOHNSON. ROOM: P183 Age: 26 Sex: M Admission Date: 11/26/2016 : 1990 Attending Physician: Tashi Allan M.D. Admitting Physician: Tashi Allan M.D. Primary Care Physician: Sumit Gracia M.D. [facility] PROGRESS NOTES DATE November 30, 2016 DISCUSSION Mr. Johnson is a 26-year-old white male, who was seen today and chart was reviewed and the case was discussed with the staff. He has been still complaining of persistent mood disturbance. Meanwhile, he has been taking the medications and tolerating them fairly well with no reported side effects. MENTAL STATUS EXAMINATION Young white male, who was casually dressed with fair personal hygiene and appears to be in no acute distress or discomfort. He was awake and alert with intact orientation. His mood is anxious with a congruent affect. He denies any suicidal or homicidal ideations. His insight and judgment remain slightly impaired. TREATMENT PLAN 1. We will continue him on his current medications and treatment protocol, and will monitor his response to the medications, and make further adjustments as needed. 2. We will continue to followup. Dictated by... Mahnaz Fraser M.D. LINDSAY/eduin TD: 12/01/2016 07:22 JOB #: [id number] Unit #: [id number] #: [id number] Patient: ANNA MARIE JOHNSON YOLIS PROGRESS NOTES Page 1 of 1 X Mahnaz Fraser MD X PROGRESS NOTE
--- NOTE | ~2016-11-26 | PN ---
Unit #: [id number] #: [id number] Patient: ANNA MARIE JOHNSON [id number] [facility] [address] [place] [address] [id number] I MR#: [id number] NAME: ANNA MARIE JOHNSON. ROOM: P183 Age: 26 Sex: M Admission Date: 11/26/2016 : 1990 Attending Physician: Tashi Allan M.D. Admitting Physician: Tashi Allan M.D. Primary Care Physician: Sanjay Jean PROGRESS NOTES DATE December 02, 2016 DISCUSSION Mr. Johnson is a 26-year-old white male, who was seen today and chart was reviewed and the case was discussed with the staff. He has been anxious, withdrawn, and rather seclusive to himself. Meanwhile, he has been cooperative with the treatment recommendations and he has been taking the medications and tolerating them fairly well. MENTAL STATUS EXAMINATION Young white male, who was casually dressed with fair personal hygiene and appears to be in no acute distress or discomfort. He was awake and alert on interaction with intact orientation. His mood is anxious with a congruent affect. He denies any suicidal or homicidal ideations. His insight and judgment remain slightly impaired. TREATMENT PLAN 1. We will continue him on his current medications and treatment protocol, and will monitor his response, and make further adjustments as needed. 2. We will continue to followup. Dictated by... Sanjay Mao/eduin TD: 12/03/2016 10:05 JOB #: [id number] Unit #: [id number] #: [id number] Patient: ANNA MARIE JOHNSON YOLIS PROGRESS NOTES Page 1 of 1 X Mahnaz Fraser MD PROGRESS NOTE
--- NOTE | ~2016-11-26 | CO ---
Unit #: [id number] #: [id number] Patient: PRASANNA JOHNSON [id number] [place] [address] [id number] MR#: [id number] NAME: PRASANNA JOHNSON. ROOM: P183 Age: 26 Sex: M Admission Date: 11/26/2016 : 1990 Attending Physician: Tashi Allan M.D. Primary Care Physician: Sumit Gracia M.D. Consultation Date: 11/27/2016 CONSULTATION REPORT SUBJECTIVE Prasanna is a 26-year-old man, who was originally admitted with drug-induced psychosis. He has had complained to nursing staff at some point during his admission of chest congestion. We have been asked to assess and give recommendations. OBJECTIVE GENERAL: Alert, well nourished, in no apparent distress. VITAL SIGNS: Blood pressure 120/70, heart rate 80, respirations 16, temperature 98.6. HEENT: Normocephalic. TMs not viewed. Oral and nasal passages clear. Conjunctivae clear. NECK: Supple without lymphadenopathy. CHEST: Lungs clear. No cough noted. ASSESSMENT Normal exam. PLAN No Rx. Dictated by... Isabell Andujar PCandyACandy-C. for Sanjay Astorga/robert TD: 12/04/2016 00:45 JOB #: [id number] CONSULTATION REPORT Page 1 of 1 X Isabell Andujar X CONSULTATION REPORT
--- NOTE | ~2016-11-26 | DS ---
Unit #: [id number] #: [id number] Patient: ANNA MARIE JOHNSON [id number] [facility] [address] [place] [address] [id number] I MR#: [id number] NAME: ANNA MARIE JOHNSON ROOM: [facility] Age: 26 Sex: M Admission Date: 11/26/2016 : 1990 Discharge Date: 12/04/2016 Attending Physician: Tashi Allan M.D. Primary Care Physician: Sumit Gracia M.D. DISCHARGE SUMMARY IDENTIFYING DATA Mr. Johnson is a 26-year-old single white male who was brought to the hospital on a mental inquest warrant. DISCHARGE DIAGNOSES Psychiatric: Amphetamine dependence, moderate; opioid dependence, moderate; amphetamine-induced mood disorder. Medical: None. Stressors: Moderate psychosocial stressors. HISTORY OF PRESENT ILLNESS Please see initial psychiatric evaluation for details. PAST PSYCHIATRIC HISTORY Please see initial psychiatric evaluation for details. PAST MEDICAL HISTORY Please see initial psychiatric evaluation for details. HOSPITAL COURSE The [facility] Allan and MIW was maintained and he was closely monitored. He was anxious, withdrawn, and rather seclusive to himself and his sleep remained a significant issue and when Dr. Allan left for a vacation, he was transferred to care, MIW was maintained, and he did appear in front of the MIW court and was able to sign and agree order, followed by which it was decided that he will be discharged home and will continue treatment on an outpatient basis. DISCHARGE MEDICATIONS Remeron 15 mg at bedtime for depression, doxepin 100 mg at bedtime for sleep, and Vistaril 50 mg t.i.d. for anxiety. DISCHARGE CONDITION Stable. PROGNOSIS Fair. Dictated by... Mahnaz Fraser M.D. IAA/modl Unit #: [id number] #: [id number] Patient: ANNA MARIE JOHNSON TD: 12/04/2016 06:47 JOB #: [id number] DISCHARGE SUMMARY Page 1 of 1 X Mahnaz Fraser MD DISCHARGE SUMMARY
--- NOTE | ~2016-11-26 | PN ---
Unit #: [id number] #: [id number] Patient: ANNA MARIE JOHNSON [id number] [facility] [address] [place] [address] [id number] I MR#: [id number] NAME: ANNA MARIE JOHNSON. ROOM: P183 Age: 26 Sex: M Admission Date: 11/26/2016 : 1990 Attending Physician: Tashi Allan M.D. Admitting Physician: Tashi Allan M.D. Primary Care Physician: Sanjay Jean PROGRESS NOTES DATE 12/03/2016 DISCUSSION Mr. Johnson is a 26-year-old white male who was seen today and chart was reviewed and case was discussed with the staff. He has been anxious, withdrawn and rather seclusive to himself. He has been cooperative with treatment recommendations and has been taking medications and tolerating them fairly well. MENTAL STATUS EXAMINATION Young white male who was casually dressed with fair personal hygiene and appears to be in no acute distress or discomfort. He was awake and alert on interaction with intact orientation. His mood was anxious with congruent affect. He denies any suicidal or homicidal ideation. His insight and judgement remains slightly impaired. TREATMENT PLAN 1. Will continue on his current medications and treatment protocol. The patient is scheduled to go to MIW court today and will anticipate that patient will sign an agreed order and will recommend ongoing outpatient psychiatric treatment patient sign an agreed order. 2. Will continue to follow up. Dictated by... Sanjay Mao/ayad TD: 12/03/2016 19:57 JOB #: [id number] Unit #: [id number] #: [id number] Patient: ANNA MARIE JOHNSON YOLIS PROGRESS NOTES Page 1 of 1 X Mahnaz Fraser MD PROGRESS NOTE
--- NOTE | ~2016-11-26 | PN ---
Unit #: [id number] #: [id number] Patient: ANNA MARIE JOHNSON [id number] [facility] [address] [place] [address] [id number] MR#: [id number] NAME: ANNA MARIE JOHNSON. ROOM: P183 Age: 26 Sex: M Admission Date: 11/26/2016 : 1990 Attending Physician: Tashi Allan M.D. Admitting Physician: Tashi Allan M.D. Primary Care Physician: Sumit Gracia M.D. [facility] PROGRESS NOTES DATE 11/28/2016 DISCUSSION Mr. Johnson is a 26-year-old white male who was seen today chart was reviewed and case was discussed with the staff. He has been anxious, withdrawn, rather seclusive to himself. Meanwhile, he has been showing insight into situation and was told that he is on a mental inquest warrant and having difficulty comprehending that. However, no agitation or aggression has been noted. MENTAL STATUS EXAMINATION Young white male who was casually dressed with fair personal hygiene and appears to be in no acute distress or discomfort. He was awake and alert with impaired attention and concentration. His mood was anxious with congruent affect. He denies any suicidal or homicidal ideation. His insight and judgement remains slightly impaired. TREATMENT PLAN 1. Will continue on his current treatment protocol. Will monitor his response to the medications and make further adjustments as needed. 2. Will continue to follow up. Dictated by... Sanjay Mao/ayad TD: 11/28/2016 14:31 JOB #: [id number] Unit #: [id number] #: [id number] Patient: ANNA MARIE JOHNSON YOL[facility] PROGRESS NOTES Page 1 of 1 X Mahnaz Fraser MD PROGRESS NOTE
--- NOTE | ~2016-11-26 | CO ---
Unit #: [id number] #: [id number] Patient: PRASANNA JOHNSON [id number] [place] [address] [id number] I MR#: [id number] NAME: PRASANNA JOHNSON. ROOM: P183 Age: 26 Sex: M Admission Date: 11/26/2016 : 1990 Attending Physician: Tashi Allan M.D. Primary Care Physician: Sumit Gracia M.D. Consultation Date: 11/28/2016 CONSULTATION REPORT SUBJECTIVE Prasanna is a 26-year-old who complains of a sore throat. He denies any cough, postnasal drainage, or ear pain. There have been no recorded increased temperatures. At time of admission, he was noted to have redness in both eyes. He was started on Cortisporin drops. When I spoke with Prasanna on 11/28/2016, he said that his sore throat had resolved. On exam, his eyes had no redness or discharge. He had no complaints. ASSESSMENT 1. Bilateral conjunctivitis, resolved. 2. Sore throat, the patient reports that it has resolved. PLAN Continue Cortisporin eyedrops. Dictated by... Isabell Andujar P.A.-C. for Sanjay Astorga/robert TD: 12/03/2016 02:58 JOB #: [id number] CONSULTATION REPORT Page 1 of 1 X Isabell Andujar X CONSULTATION REPORT
--- NOTE | ~2016-11-26 | PN ---
Unit #: [id number] #: [id number] Patient: ANNA MARIE JOHNSON [id number] [facility] [address] [place] [address] [id number] I MR#: [id number] NAME: ANNA MARIE JOHNSON. ROOM: P183 Age: 26 Sex: M Admission Date: 11/26/2016 : 1990 Attending Physician: Tashi Allan M.D. Admitting Physician: Tashi Allan M.D. Primary Care Physician: Sanjay Jean PROGRESS NOTES DATE December 01, 2016 DISCUSSION Mr. Johnson is a 26-year-old white male, who was seen today and chart was reviewed and the case was discussed with the staff. He has been anxious, withdrawn, and rather seclusive to himself. Meanwhile, he has been cooperative with the treatment recommendations and he has been taking the medications and tolerating them fairly well. MENTAL STATUS EXAMINATION Young white male, who was casually dressed with fair personal hygiene and appears to be in no acute distress or discomfort. He was awake and alert on interaction with intact orientation. His mood is anxious with a congruent affect. He denies any suicidal or homicidal ideations. His insight and judgment remain slightly impaired. TREATMENT PLAN 1. We will continue him on his current medications and treatment protocol, and will monitor his response, and make further adjustments as needed. 2. We will continue to followup. Dictated by... Sanjay Mao/eduin TD: 12/02/2016 08:33 JOB #: [id number] Unit #: [id number] #: [id number] Patient: ANNA MARIE JOHNSON YOLIS PROGRESS NOTES Page 1 of 1 X Mahnaz Fraser MD PROGRESS NOTE
[2016-11-28 08:22] LABS: URINE SOURCE CLEAN CATCH
[2016-11-28 10:03] LABS: ALBUMIN SERUM 3.6 g/dL (3.5-5.0); BILIRUBIN,TOTAL 0.8 mg/dL (0.2-2.0); BUN/CREATININE RATIO 16.66; CALCIUM SERUM 8.7 mg/dL (8.4-10.2); CREATININE SERUM 0.9 mg/dL (0.6-1.4); GLOM FILT RATE Estimated 115.8 mL/min (>60); POTASSIUM 4.2 mmol/L (3.5-5.1); PROTEIN TOTAL SERUM 5.9 g/dL (6.0-8.3)
[2016-11-28 10:10] LABS: BASOPHIL% 0.8 % (0-2.5); EOSINOPHIL# 0.1 X10e3 (0-0.7); EOSINOPHIL% 2.1 % (0.0-7.0); HEMATOCRIT 42.4 % (38.0-50.0); HEMOGLOBIN 13.9 gm/dL (13.0-16.0); LYMPHOCYTE# 2.1 X10e3 (1.0-3.5); LYMPHOCYTE% 35.9 % (17.0-45.0); MEAN CELL VOLUME 93.5 FL (83-96); MEAN CORPUSCULAR HEMOGLOBIN 30.7 PG (28-34); MEAN CORPUSCULAR HGB CONC 32.8 g/dL (30-36); MEAN PLATELET VOLUME 8.9 FL (6.5-11.5); MONOCYTE# 0.7 X10e3 (0-1.0); MONOCYTE% 11.6 % (3.0-12.0); NEUTROPHIL# 2.9 X10e3 (1.5-7.1); NEUTROPHIL% 49.6 % (40-75); PLATELET COUNT 151 X10e3 (140-420); RED BLOOD COUNT 4.53 X10e (3.90-5.60); RED CELL DISTRIBUTION WIDTH 13.3 % (11.0-15.5); WHITE BLOOD COUNT 5.9 X10e3 (4.0-10.5)
[2016-11-28 10:19] LABS: DIFF IND NO
[2016-11-28 10:40] LABS: URINE APPEARANCE CLOUDY; URINE BILIRUBIN NEG (NEG); URINE BLOOD NEG (NEG); URINE COLOR YELLOW; URINE GLUCOSE NORM (NORM); URINE KETONE NEG (NEG); URINE LEUKOCYTE ESTERASE NEG (NEG); URINE NITRATE NEG (NEG); URINE PROTEIN NEG (NEG); URINE UROBILINOGEN NORM (NORM)
[2016-11-28 10:43] LABS: AMPHETAMINE POS (NEG); BARBITURATES NEG (NEG); BENZODIAZEPINES POS (NEG); COCAINE NEG (NEG); MARIJUANA NEG (NEG); OPIATES POS (NEG); TRICYCLIC ANTIDEPRESSANTS POS (NEG); U METHADONE NEG (NEG)
[2016-12-01 12:46] LABS: ALBUMIN SERUM 4.2 g/dL (3.5-5.0); BILIRUBIN,TOTAL 0.2 mg/dL (0.2-2.0); BUN/CREATININE RATIO 16.25; CREATININE SERUM 0.8 mg/dL (0.6-1.4); GLOM FILT RATE Estimated 121.6 mL/min (>60); POTASSIUM 4.2 mmol/L (3.5-5.1); PROTEIN TOTAL SERUM 6.7 g/dL (6.0-8.3)
[2016-12-02 13:51] LABS: URINE APPEARANCE CLEAR; URINE BILIRUBIN NEG (NEG); URINE BLOOD NEG (NEG); URINE COLOR YELLOW; URINE GLUCOSE NEG (NEG); URINE KETONE NEG (NEG); URINE LEUKOCYTE ESTERASE NEG (NEG); URINE NITRATE NEG (NEG); URINE PH 6.5 (5-8); URINE PROTEIN NEG (NEG); URINE SPECIFIC GRAVITY 1.015 (1.003-1.035); URINE UROBILINOGEN 0.2 MG/DL (NEG)
== END 2016-12-04 10:05 | DRG 897 ==
LOC: P2S 14:23 → P1E 14:23
PROVIDERS: Psychiatry & Neurology Psychiatry
DX: F15.24 Other stimulant dependence with stimulant-induced mood disorder (principal); F11.20 Opioid dependence, uncomplicated; F17.210 Nicotine dependence, cigarettes, uncomplicated; R05 Cough; J02.9 Acute pharyngitis, unspecified; H10.9 Unspecified conjunctivitis
CPT/HCPCS: 80053; 80307; 81003; 85025

== ENCOUNTER 2016-12-26 18:06 | Inpatient (IN) | payer OTHER ==
[~2016-12-26] VITALS: Ht 172.7 cm; Wt 59.0 kg
--- NOTE | ~2016-12-26 | PN ---
Unit #: [id number] #: [id number] Patient: PRASANNA JOHNSON [id number] [facility] [address] [place] [address] [id number] I MR#: [id number] NAME: PRASANNA JOHNSON. ROOM: P251 Age: 26 Sex: M Admission Date: 12/26/2016 : 1990 Attending Physician: Tashi Allan M.D. Admitting Physician: Tashi Allan M.D. Primary Care Physician: Sanjay Jean PROGRESS NOTES DATE OF SERVICE 12/28/2016 DISCUSSION Prasanna Johnson is a 26-year-old male seen on 12/28/2016. Patient interviewed, chart reviewed. Obtained information from nursing staff. Patient was compliant and cooperative. Mood was labile. The patient was somewhat mad, angry, upset, argumentative, cussing, peer conflict. The patient urine drug screen pending. Complete review of systems unremarkable. MENTAL STATUS EXAMINATION General appearance, patient dressed casually. Attention span and concentration fair. Oriented to place and person. Mood and affect labile. Speech rapid. Thought process circumstantial, guarded, paranoid, mood lability. Recent and remote memory poor. Insight and judgement poor. DIAGNOSES 1. Bipolar mood disorder NOS 2. Polysubstance abuse. ASSESSMENT/PLAN Advise to continue with current medication and therapeutic protocol. If needed consider further adjustment of medication. Dictated by... Sanjay East/kalyani TD: 12/30/2016 04:09 JOB #: [id number] Unit #: [id number] #: [id number] Patient: PRASANNA JOHNSON YOLIS PROGRESS NOTES Page 1 of 1 X Tashi Allan MD X PROGRESS NOTE
--- NOTE | ~2016-12-26 | PA ---
Unit #: [id number] #: [id number] Patient: PRASANNA JOHNSON [id number] [facility] [address] [place] [address] [id number] I MR#: [id number] NAME: PRASANNA JOHNSON. ROOM: P174 Age: 26 Sex: M Admission Date: 12/26/2016 : 1990 Date of Assessment: Attending Physician: Tashi Allan M.D. Admitting Physician: Tashi Allan M.D. Primary Care Physician: Sumit Gracia M.D. PSYCHIATRIC ASSESSMENT INFORMANT The patient reliability, poor; chart reliability, good. CHIEF COMPLAINT Suicidal ideation, substance abuse. HISTORY OF PRESENT ILLNESS Mr. Prasanna Johnson is a 26-year-old male, well known to us from his previous admission, last admitted on 12/26/2016. The patient presented with the above-mentioned complaint. The patient reports that he was dropped by friend reported that he is feeling hopeless, addicted to drugs and alcohol. The patient continues to do the same thing. The patient reports that "I'm mad, sad, angry." The patient reported that he is on drugs amphetamine, alcohol, opioids. The patient reports that he is using a gram of meth and heroin daily and drinking fifth of vodka daily. The patient reports the last time he drank was 3:00 p.m. yesterday. The patient reports some homelessness, kicked out of his father's residence and E[employer]. The patient has no income, poor support system, suicidal ideation. Denied any plans. The patient admitted using tobacco, one pack daily; alcohol, fifth of vodka daily, marijuana blunt weekly. The patient's opioid use, age of onset 23 1 g daily; amphetamine, age of onset 23 1 g daily; benzodiazepine, age of onset 18. Longest period of sobriety 18. Last period of sobriety 2 years ago. The patient reported history of blackout, history of hepatitis, withdrawal symptom with IV drug use, currently reporting runny nose, nausea, vomiting, diarrhea, body aches, irritability. The patient needing inpatient admission at this time for psychiatric stabilization. PAST PSYCHIATRIC HISTORY Remarkable for history of previous multiple admission at [facility] 11/26/2016, 11/03/2016, 09/11/2016. FAMILY HISTORY AND SOCIAL HISTORY The patient is currently homeless. No financial support. No history of abuse. History of legal problems as mentioned above. MEDICAL HISTORY Remarkable for history of hepatitis C. Musculoskeletal; muscle strength and tone, no atrophy or abnormal movement. Gait palmer. MEDICATION HISTORY The patient is on Remeron, Protonix, Vistaril, Seroquel. Unit #: [id number] #: [id number] Patient: PRASANNA JOHNSON ALLERGIES No known drug allergies. SUBSTANCE ABUSE HISTORY Please see above. REVIEW OF SYSTEMS HEENT: Eyes, clear. Ears, nose, mouth, and throat; clear. CARDIOVASCULAR: Unremarkable. RESPIRATORY: Unremarkable. GI: Unremarkable. : Unremarkable. SKIN: Unremarkable. LYMPH NODE: Unremarkable. NEUROLOGIC: Unremarkable. ENDOCRINE: Unremarkable. HEMATOLOGIC: Unremarkable. ALLERGIC/IMMUNOLOGIC: Unremarkable. MUSCULOSKELETAL: Muscle strength and tone, no atrophy or abnormal movement. Gait normal. MENTAL STATUS EXAMINATION CONSTITUTIONAL: Measurement of vital signs; temperature 98.0, pulse 54, respirations 16, and blood pressure 89/43, height 5 feet 8 inches, and weight 130 pounds. GENERAL APPEARANCE: The patient dressed casually. The patient did not show any facial deformity. MUSCULOSKELETAL: Please see above. PSYCHIATRIC EXAMINATION Description of speech, slow in volume and rate. Description of thought process, circumstantial. Description of association, guarded. Description of abnormal psychotic thinking; somewhat guarded and paranoid, but denied any hallucination. Reported suicidal ideation. Denied any homicidal ideation and substance abuse. Description of the patient's judgment, concerning everyday activity, poor. Social situation, poor. Concerning psychiatric condition, poor. Complete mental examination; oriented in time, place, and person. Recent and remote memory, poor. Attention span and concentration, poor. Language, fair. Fund of knowledge, fair. Vocabulary, fair. Mood and affect, sad and dysphoric. Insight and judgment, fair to poor. ASSETS AND LIABILITIES Assets; the patient is articulate, able to take care of his ADL. Liability; history of substance abuse and depression. ADMITTING DIAGNOSES Psychiatric: Major depressive disorder, recurrent, severe, F33.2; opioid use disorder, severe, F11.20; alcohol use disorder, severe, F10.20; amphetamine use disorder, severe, F15.20. Secondary diagnosis: Deferred. Medical diagnosis: History of asthma, hepatitis C. Stressors: Psychosocial stressor, financial problem, and housing problem. Unit #: [id number] #: [id number] Patient: PRASANNA JOHNSON PSYCHIATRIC PLAN AND TREATMENT GOAL AND DISCHARGE PLAN 1. Advised to admit the patient on the inpatient unit. Provide safe, supportive, and structured environment. 2. Ordered labs; CBC, CMP, UA, and UDS. 3. Advised to resume home medication. The patient to attend all the programming group therapy, individual therapy, chemical dependency group, SC1 precaution. The patient to continue with Vistaril 50 mg t.i.d., Protonix 40 mg daily, Remeron 15 mg at bedtime, and doxepin 100 mg at bedtime. 4. Treatment goal; to attain euthymic mood, gain insight into his problem, and learn coping skills. 5. Discharge plan; plan to stabilize the patient and consider followup in outpatient program. ESTIMATED LENGTH OF STAY 5 to 7 days. Dictated by... Tashi Allan M.D. TYREL/robert TD: 12/27/2016 14:49 JOB #: [id number] PSYCHIATRIC ASSESSMENT Page 1 of 1 X Tashi Allan MD X PSYCHIATRIC ASSESSMENT
--- NOTE | ~2016-12-26 | DS ---
Unit #: [id number] #: [id number] Patient: ANNA MARIE JOHNSON [id number] [place] [address] [id number] MR#: [id number] NAME: ANNA MARIE JOHNSON. ROOM: P251 Age: 26 Sex: M Admission Date: 12/26/2016 : 1990 Discharge Date: 12/29/2016 Attending Physician: Tashi Allan M.D. Primary Care Physician: Sumit Gracia M.D. DISCHARGE SUMMARY REASON FOR ADMISSION Substance abuse and depression. DIAGNOSTIC STUDIES LABORATORY RESULTS: Urine drug screen positive for benzodiazepine, amphetamines, opioids. HOSPITAL COURSE The patient was admitted to inpatient unit on 12/26/2016 and discharged on 12/29/2016. The patient was treated on the inpatient unit with group therapy, individual therapy, medication management. The patient was responsive to treatment, showed improvement, but still having problem with mood lability, peer conflict. The patient was subsequently discharged with a plan to follow up in outpatient program. DISCHARGE MEDICATIONS Protonix 40 mg daily for GERD, Vistaril 50 mg t.i.d. for anxiety, Seroquel 100 mg daily for insomnia, Remeron 15 mg at bedtime for depression. DISCHARGE DIAGNOSES Psychiatric: Major depressive disorder, recurrent, severe, F33.2; opioid use disorder, severe, F11.20; alcohol use disorder, severe, F10.20; amphetamine use disorder, severe, F15.20. Secondary diagnosis: Deferred. Medical diagnoses: History of asthma, hepatitis C. Stressors: Psychosocial stressors, financial problem, housing problem. DISCHARGE INSTRUCTIONS The patient to follow up in outpatient program as per social science instructor. CONDITION ON DISCHARGE The patient was pleasant and cooperative. Denied any psychotic symptom or any suicidal ideation. PROGNOSIS Guarded. DIET AND ACTIVITY As tolerated. Unit #: [id number] #: [id number] Patient: ANNA MARIE JOHNSON Dictated by... Tashi Allan M.D. SZC/modl TD: 12/31/2016 03:17 JOB #: [id number] DISCHARGE SUMMARY Page 1 of 1 X Tashi Allan MD DISCHARGE SUMMARY
--- NOTE | ~2016-12-26 | PN ---
Unit #: [id number] #: [id number] Patient: PRASANNA JOHNSON [id number] [facility] [address] [place] [address] [id number] I MR#: [id number] NAME: PRASANNA JOHNSON. ROOM: P174 Age: 26 Sex: M Admission Date: 12/26/2016 : 1990 Attending Physician: Tashi Allan M.D. Admitting Physician: Tashi Allan M.D. Primary Care Physician: Sanjay Jean PROGRESS NOTES DATE 12/26/2016 DISCUSSION Mr. Prasanna Johnson is a 26-year-old male seen on 12/26/2016. The patient interviewed, chart reviewed, and obtained information from nursing staff. Patient reported feeling sad, depressed, anxious, withdrawn, (1) flat affect, guarded. REVIEW OF SYSTEMS Complete review of systems unremarkable. MENTAL STATUS EXAMINATION General appearance: Patient dressed casually. Attention span and concentration fair. Oriented in time, place, and person. Mood and affect sad, depressed, flat. Speech monotone. Thought process concrete. Patient having passive SI, withdrawn, (2) , guarded. Recent and remote memory poor. Insight and judgment poor. Vital signs: 98, 54, 16, blood pressure 89/43. DIAGNOSES 1. Major depressive disorder, recurrent. 2. Alcohol use disorder, severe. 3. Opiate abuse disorder, severe. 4. Amphetamine abuse disorder, severe. ASSESSMENT AND PLAN Patient to continue with current medication and therapeutic protocol. If needed, consider further adjustment of medication. Dictated by... Sanjay East TD: 12/28/2016 09:32 JOB #: [id number] Unit #: [id number] #: [id number] Patient: PRASANNA JOHNSON YOLIS PROGRESS NOTES Page 1 of 1 X Tashi Allan MD PROGRESS NOTE
--- NOTE | ~2016-12-26 | HP ---
Unit #: [id number] #: [id number] Patient: ANNA MARIE JOHNSON [id number] [facility] [address] [place] [address] [id number] MR#: [id number] NAME: ANNA MARIE JOHNSON. ROOM: P174 Age: 26 Sex: M Admission Date: 12/26/2016 : 1990 Attending Physician: Tashi Allan M.D. Admitting Physician: Tashi Allan M.D. Primary Care Physician: Sumit Gracia M.D. HISTORY AND PHYSICAL REASON FOR ADMISSION Acute psychiatric inpatient admission. HISTORY OF PRESENT ILLNESS The patient is a 26-year-old male, currently sleeping, quite somnolent at the present time. He apparently was dropped off by a friend secondary to drug and alcohol related issues. He stated that he wished to be detoxed. He also had increased suicidal ideation in the early part of the day. [facility] had [facility] to [facility] disorderly conduct. As per reports, he also has been abusing alcohol. He has had difficulty with sleeping and increased insomnia as well. PAST MEDICAL HISTORY Hepatitis C, asthma, withdrawal seizures. CURRENT HOME MEDICATIONS Remeron, doxepin, Protonix. ALLERGIES No known drug allergies. SOCIAL HISTORY Positive tobacco, alcohol, marijuana, opiates, amphetamines. REVIEW OF SYSTEMS Positive for those noted in HPI including nervousness, increased anxiety, suicidal ideation, muscle cramps, restlessness. PHYSICAL EXAMINATION GENERAL: Awake, alert, oriented to person, place, and time. Well built, well nourished. Does not appear to be in any acute distress. VITAL SIGNS: Temperature 98, blood pressure 121/70, respiratory rate 16, pulse 86. HEAD: Atraumatic. Normocephalic. EYES: Bilateral extraocular muscles are normal. Pupils equal, reactive to light and accommodation. Sclerae are normal. No jaundice. NECK: Neck is supple. No neck rigidity. No thyromegaly. No carotid bruit. No JVD. Oral mucosa is moist. CHEST: Bilateral vesicular breathing. Clear to auscultation. No basilar rales. CARDIOVASCULAR: S1 and S2 normal. No murmur, no gallop, no rub. ABDOMEN: Soft, nontender. No organomegaly. Bowel sounds are normal. No Unit #: [id number] #: [id number] Patient: ANNA MARIE JOHNSON A hernia, no masses, no rebound, no guarding. EXTREMITIES: No pitting edema. No calf tenderness. Extremity pulses, including dorsalis pedis, have good volume. BACK: Normal spine curvature. No spine tenderness. No costovertebral angle tenderness. ARCHITECTURAL EXAMINER: Cranial nerves normal bilaterally. Motor function bilaterally symmetric and normal. Sensory system normal. SKIN: Warm and dry. INITIAL IMPRESSION 1. Acute psychiatric inpatient admission. 2. Ongoing IV drug abuse. 3. Substance abuse. 4. Suicidal ideation. 5. Major depressive disorder. PLAN As per psychiatrist, medical condition, stable. There are no medical contraindications to patient participating in activities while here at [facility]. Dictated by... Shady Ceron M.D. BURT/robert TD: 12/27/2016 17:20 JOB #: [id number] HISTORY AND PHYSICAL Page 1 of 1 X Shady Ceron MD X HISTORY AND PHYSICAL
== END 2016-12-29 13:30 | disposition home or self-care (01) | DRG 885 ==
LOC: P1E 19:41 → P2L 19:41 → P1E 20:36 → P2S 12-28 10:00 → P2L 12-29 02:45
PROC: HZ2ZZZZ Detoxification Services for Substance Abuse Treatment (ICD-10-PCS; principal; 2016-12-26)
DX: F33.2 Major depressive disorder, recurrent severe without psychotic features (principal); F11.20 Opioid dependence, uncomplicated; F15.20 Other stimulant dependence, uncomplicated; F10.20 Alcohol dependence, uncomplicated; F17.200 Nicotine dependence, unspecified, uncomplicated
CPT/HCPCS: J2550

== ENCOUNTER 2017-01-19 19:01 | Inpatient (IN) | payer OTHER ==
[~2017-01-19] VITALS: Ht 172.7 cm; Wt 63.5 kg
--- NOTE | ~2017-01-19 | DS ---
Unit #: [id number] #: [id number] Patient: ANNA MARIE JOHNSON [id number] [facility] [address] [place] [address] [id number] MR#: [id number] NAME: ANNA MARIE JOHNSON. ROOM: P1 Age: 26 Sex: M Admission Date: 01/19/2017 : 1990 Discharge Date: 01/23/2017 Attending Physician: Tashi Allan M.D. Primary Care Physician: Sumit Gracia M.D. DISCHARGE SUMMARY REASON FOR ADMISSION Depression, substance abuse. DIAGNOSTIC STUDIES LABORATORY DATA: Unremarkable. HOSPITAL COURSE Patient was admitted to inpatient unit on 01/19/2017 and discharged on 01/23/2017. Patient was treated with group therapy, individual therapy, expressive therapy, medication management, detox protocol, detox monitoring. Patient was responsive to treatment and showed improvement. Subsequently, patient was discharged with a plan to followup in outpatient program. DISCHARGE DIAGNOSES PSYCHIATRIC: 1. Major depressive disorder, recurrent, severe, F33.2. 2. Opiate use disorder, severe, F11.20. 3. Alcohol use disorder, severe, F10.20. SECONDARY DIAGNOSIS: Deferred. MEDICAL DIAGNOSIS: 1. History of asthma. 2. Hepatitis C. STRESSORS: Psychosocial stressor, financial problem, housing problem. FOLLOWUP CARE Patient to followup in outpatient clinic as per case management social worker. DISCHARGE MEDICATIONS 1. Vistaril 50 mg t.i.d. for anxiety. 2. Sinequan 100 mg at bedtime for sleep. 3. Remeron 15 mg at bedtime for depression. CONDITION AT DISCHARGE Patient pleasant, cooperative. Denied any psychotic symptoms or any suicidal ideation. PROGNOSIS Guarded. Unit #: [id number] #: [id number] Patient: ANNA MARIE JOHNSON DIET AND ACTIVITY As tolerated. Dictated by... Sanjay East/ayad TD: 01/24/2017 21:19 JOB #: [id number] DISCHARGE SUMMARY Page 1 of 1 X Tashi Allan MD X DISCHARGE SUMMARY
--- NOTE | ~2017-01-19 | PN ---
Unit #: [id number] #: [id number] Patient: PRASANNA JOHNSON [id number] [facility] [address] [place] [address] [id number] I MR#: [id number] NAME: PRASANNA JOHNSON. ROOM: P183 Age: 26 Sex: M Admission Date: 01/19/2017 : 1990 Attending Physician: Tashi Allan M.D. Admitting Physician: Tashi Allan M.D. Primary Care Physician: Sanjay Jean PROGRESS NOTES DATE 01/22/2017 DISCUSSION Prasanna Johnson is a 26-year-old male, seen on 01/22/2017. The patient interviewed, chart reviewed, and obtained information from the nursing staff. The patient continues to report feeling sad, depressed, unable to contract for safety, having thoughts of jumping in front of the bus, anxious, nervous, sad, depressed. REVIEW OF SYSTEMS Complete review of systems unremarkable. MENTAL STATUS EXAMINATION General appearance: Patient dressed casually. Attention span and concentration, fair. Oriented in time, place, and person. Mood and affect, labile. Speech, monotone. Thought process, concrete. The patient reported having suicidal ideation. Recent and remote memory, poor. Insight and judgment, poor. DIAGNOSES 1. Major depressive disorder, recurrent, severe. 2. Polysubstance abuse. ASSESSMENT/PLAN Advised to continue with the current medication and therapeutic protocol, and if needed consider further adjustment of medication. Dictated by... Sanjay East/eduin TD: 01/23/2017 05:27 JOB #: [id number] Unit #: [id number] #: [id number] Patient: PRASANNA JOHNSON PEAERWIN PROGRESS NOTES Page 1 of 1 X Tashi Allan MD X PROGRESS NOTE
--- NOTE | ~2017-01-19 | PN ---
Unit #: [id number] #: [id number] Patient: PRASANNA JOHNSON [id number] [facility] [address] [place] [address] [id number] I MR#: [id number] NAME: PRASANNA JOHNSON. ROOM: P183 Age: 26 Sex: M Admission Date: 01/19/2017 : 1990 Attending Physician: Tashi Allan M.D. Admitting Physician: Tashi Allan M.D. Primary Care Physician: Sanjay Jean PROGRESS NOTES DATE 01/21/2017 DISCUSSION Prasanna is a 26-year-old male, seen on 01/21/2017. The patient interviewed, chart reviewed, and obtained information from the nursing staff. The patient was compliant and cooperative, able to maintain safe behavior, withdrawn, isolative, flat affect, sad, dysphoric mood. REVIEW OF SYSTEMS Complete review of systems unremarkable. MENTAL STATUS EXAMINATION General appearance: Patient dressed casually. Attention span and concentration, fair. Oriented in time, place, and person. Mood and affect, labile. Speech, monotone. Thought process, concrete. The patient denied any thoughts of harming self or others. Recent and remote memory, poor. Insight and judgment, poor. DIAGNOSES 1. Major depressive disorder, recurrent, severe. 2. Polysubstance abuse. ASSESSMENT/PLAN Advised to continue with the current medication and therapeutic protocol, and if needed consider further adjustment of medication. Dictated by... Sanjay East/eduin TD: 01/22/2017 05:31 JOB #: [id number] Unit #: [id number] #: [id number] Patient: PRASANNA JOHNSON [facility] PROGRESS NOTES Page 1 of 1 X Tashi Allan MD PROGRESS NOTE
--- NOTE | ~2017-01-19 | PA ---
Unit #: [id number] #: [id number] Patient: PRASANNA JOHNSON [id number] [facility] [address] [place] [address] [id number] I MR#: [id number] NAME: PRASANNA JOHNSON. ROOM: P183 Age: 26 Sex: M Admission Date: 01/19/2017 : 1990 Date of Assessment: Attending Physician: Tashi Allan M.D. Admitting Physician: Tashi Allan M.D. Primary Care Physician: Sumit Gracia M.D. PSYCHIATRIC ASSESSMENT INFORMANTS The patient reliability, fair informant and chart reliability, good. CHIEF COMPLAINT Suicidal ideation. HISTORY OF PRESENT ILLNESS Mr. Prasanna Johnson is a 26-year-old male, presented with the above-mentioned complaint. The patient reported yesterday he was thinking of going in front of a moving bus, having suicidal ideation with a plan. The patient reported use of opioids and alcohol. The patient reported feeling sad, depressed, and feeling of hopelessness and reported he was trying to jump in front of the bus. The patient reports that the officer saw him and intervened. The patient reports that the officer dropped him off at [facility]. The patient reports no support system, homeless. Admitted using heroin and alcohol. The patient reported half a gram of heroin and one-fifth of vodka daily. The patient reports two cans of malt liquor. The patient denied any homicidal ideation. Needing inpatient admission at this time for psychiatric stabilization. PAST PSYCHIATRIC HISTORY Remarkable [facility], [facility] was on [facility]/26/2016. FAMILY HISTORY AND SOCIAL HISTORY The patient currently homeless. No financial support. No history of abuse. History of legal problems as mentioned above. MEDICAL HISTORY Remarkable for history of hepatitis C. Musculoskeletal; muscle strength and tone, no atrophy or abnormal movement. Gait normal. MEDICATION HISTORY The patient is on Remeron, Protonix, Vistaril, and Seroquel. ALLERGIES No known drug allergies. SUBSTANCE ABUSE HISTORY The patient reported tobacco use, age of onset 7; alcohol, age of onset 7; and opioid, age of onset 21. History of hepatitis, withdrawal symptom, and IV drug use. History of blackouts. Unit #: [id number] #: [id number] Patient: PRASANNA JOHNSON REVIEW OF SYSTEMS HEENT: Eyes, clear. Ears, nose, mouth, and throat; clear. CARDIOVASCULAR: Unremarkable. RESPIRATORY: Unremarkable. GI: Unremarkable. : Unremarkable. SKIN: Unremarkable. LYMPH NODE: Unremarkable. NEUROLOGIC: Unremarkable. ENDOCRINE: Unremarkable. HEMATOLOGIC: Unremarkable. ALLERGIC/IMMUNOLOGIC: Unremarkable. MUSCULOSKELETAL: Muscle strength and tone, no atrophy or abnormal movement. Gait normal. MENTAL STATUS EXAMINATION CONSTITUTIONAL: Measurement of vital signs; temperature 98.6, heart rate 54, respiratory rate 18, and blood pressure 110/65. Height 5 feet 8 inches and weight 140 pounds. GENERAL APPEARANCE: The patient dressed casually. The patient did not show any facial deformity. MUSCULOSKELETAL: Muscle strength and tone, no atrophy or abnormal movement. Gait normal. PSYCHIATRIC EXAMINATION Description of speech; regular rate, normal volume, normal articulation, and coherent. Description of thought process, goal directed. Description of association, intact. Description of abnormal psychotic thinking; the patient denied any hallucination or delusions, but depression and suicidal ideation. Description of the patient's judgment: Concerning everyday activity, poor. Social situation, poor. Concerning psychiatric condition, poor. Complete mental status examination; oriented in time, place, and person. Recent and remote memory, fair. Attention span and concentration, fair. Language, able to name object and repeat phrases. Fund of knowledge, aware of current event and passive vocabulary intact. Mood and affect, sad and dysphoric. Insight and judgment, fair to poor. ASSETS AND LIABILITIES Assets, the patient is articulate and able to take care of his ADL. Liability, history of depression and substance abuse. ADMITTING DIAGNOSES Psychiatric: Major depressive disorder, recurrent, severe, F33.2; opioid use disorder, severe, F11.20; and alcohol use disorder, severe, F10.20. Secondary diagnosis: Deferred. Medical diagnoses: History of asthma and hepatitis C. Stressors: Psychosocial stressor, financial problem, and housing problem. PSYCHIATRIC PLAN AND TREATMENT GOAL AND DISCHARGE PLAN 1. Advised to admit the patient on the inpatient unit. Provide safe, supportive, and structured environment. 2. Ordered labs; CBC, CMP, UA, and UDS. 3. Advised to resume home medication. If needed, consider further Unit #: [id number] #: [id number] Patient: PRASANNA JOHNSON adjustment of medication. The patient to attend group therapy, individual therapy, and chemical dependency group. Treatment goal to attain euthymic mood, gain insight into his problem, and learn coping skills. DISCHARGE PLAN Plan to stabilize the patient and consider followup in outpatient program. ESTIMATED LENGTH OF STAY 5 days. Dictated by... Sanjay East/robert TD: 01/20/2017 15:47 JOB #: [id number] PSYCHIATRIC ASSESSMENT Page 1 of 1 X Tashi Allan MD X PSYCHIATRIC ASSESSMENT
--- NOTE | ~2017-01-19 | PN ---
Unit #: [id number] #: [id number] Patient: PRASANNA JOHNSON [id number] [facility] [address] [place] [address] [id number] I MR#: [id number] NAME: PRASANNA JOHNSON. ROOM: P183 Age: 26 Sex: M Admission Date: 01/19/2017 : 1990 Attending Physician: Tashi Allan M.D. Admitting Physician: Tashi Allan M.D. Primary Care Physician: Sumit Gracia M.D. [facility] PROGRESS NOTES DATE OF SERVICE 01/20/2017 DISCUSSION Prasanna Johnson is a 26-year-old male seen on 01/20/2017. Patient interviewed, chart reviewed. Obtained information from nursing staff. Patient was compliant and cooperative. Mood sad, dysphoric, flat affect, withdrawn, isolative, guarded. Patient's vital signs 98.6, 54. Complete review of systems unremarkable. MENTAL STATUS EXAMINATION General appearance, patient dressed casually. Attention span and concentration fair. Oriented to time, place and person. Mood and affect sad, depressed. Speech monotone. Thought process concrete. Patient denied any homicidal ideation but suicidal ideation, sad, depressed, guarded, withdrawn. Recent and remote memory poor. Insight and judgement poor. DIAGNOSES 1. Major depression disorder recurrent severe, F33.2. 2. Opioid use disorder severe, F11.20. 3. Alcohol use disorder severe, F10.20. ASSESSMENT/PLAN 1. Supportive psychotherapy, psychoeducation provided to patient. 2. Educated about benefits and side effects of medication and course and prognosis of illness. 3. Advised to continue with current medication and therapeutic protocol. If needed consider further adjustment of medication. Dictated by... Sanjay East/kalyani TD: 01/20/2017 21:17 JOB #: [id number] Unit #: [id number] #: [id number] Patient: PRASANNA JOHNSON [facility] PROGRESS NOTES Page 1 of 1 X Tashi Allan MD X PROGRESS NOTE
--- NOTE | ~2017-01-19 | HP ---
Unit #: [id number] #: [id number] Patient: PRASANNA JOHNSON [id number] [facility] [address] [place] [address] [id number] I MR#: [id number] NAME: PRASANNA JOHNSON. ROOM: P183 Age: 26 Sex: M Admission Date: 01/19/2017 : 1990 Attending Physician: Tashi Allan M.D. Admitting Physician: Tashi Allan M.D. Primary Care Physician: Sumit Gracia M.D. HISTORY AND PHYSICAL Prasanna is a 26 year old admitted to [facility] because of his continued polysubstance abuse. Patient was seen and H and P dated 12/27/16 was reviewed. This is current. No changes. Please see H and P dated 12/27/16. Dictated by... Isabell Andujar P.A.-C. for Sanjay Astorga/ayad TD: 01/20/2017 18:05 JOB #: [id number] HISTORY AND PHYSICAL Page 1 of 1 X Isabell Andujar HISTORY AND PHYSICAL
[2017-01-20 09:42] LABS: BASOPHIL% 0.7 % (0-2.5); EOSINOPHIL# 0.2 X10e3 (0-0.7); EOSINOPHIL% 4.1 % (0.0-7.0); HEMATOCRIT 39.5 % (38.0-50.0); HEMOGLOBIN 13.4 gm/dL (13.0-16.0); LYMPHOCYTE# 2.5 X10e3 (1.0-3.5); LYMPHOCYTE% 43.3 % (17.0-45.0); MEAN CELL VOLUME 91.5 FL (83-96); MEAN CORPUSCULAR HEMOGLOBIN 31.1 PG (28-34); MEAN PLATELET VOLUME 8.7 FL (6.5-11.5); MONOCYTE# 0.6 X10e3 (0-1.0); MONOCYTE% 10.1 % (3.0-12.0); NEUTROPHIL# 2.4 X10e3 (1.5-7.1); NEUTROPHIL% 41.8 % (40-75); PLATELET COUNT 169 X10e3 (140-420); RED BLOOD COUNT 4.32 X10e (3.90-5.60); RED CELL DISTRIBUTION WIDTH 12.9 % (11.0-15.5); WHITE BLOOD COUNT 5.8 X10e3 (4.0-10.5)
[2017-01-20 09:45] LABS: DIFF IND NO
[2017-01-20 10:22] LABS: ALBUMIN SERUM 3.4 g/dL (3.5-5.0); BILIRUBIN,TOTAL 0.1 mg/dL (0.2-2.0); BUN/CREATININE RATIO 21.25; CALCIUM SERUM 8.4 mg/dL (8.4-10.2); CREATININE SERUM 0.8 mg/dL (0.6-1.4); GLOM FILT RATE Estimated 121.6 mL/min (>60); POTASSIUM 3.9 mmol/L (3.5-5.1); PROTEIN TOTAL SERUM 5.6 g/dL (6.0-8.3)
== END 2017-01-23 13:00 | DRG 885 ==
LOC: P1E 22:33
PROVIDERS: Psychiatry & Neurology Psychiatry
DX: F33.2 Major depressive disorder, recurrent severe without psychotic features (principal); F11.20 Opioid dependence, uncomplicated; F10.20 Alcohol dependence, uncomplicated; J45.909 Unspecified asthma, uncomplicated; B19.20 Unspecified viral hepatitis C without hepatic coma; F17.210 Nicotine dependence, cigarettes, uncomplicated
CPT/HCPCS: 80053; 85025